=== PATIENT | female | born 1965 | race African-American/Black ===

== ENCOUNTER 2018-04-02 12:56 | Inpatient (IN) | payer OTHER ==
[2018-04-02 17:02] VITALS: BMI 26.4
--- NOTE | 2018-04-02 19:59 | HP ---
[facility] Chief Complaint: crack/ cocaine rehab Allergies/Adverse Reactions: Allergies Allergy/AdvReac Type Severity Reaction Status Date / Time No Known Allergies Allergy Verified 04/02/18 18:06 History of Present Illness: 53 yo female with hx of nicotine and crack / cocaine dependence is here seeking detox. PMHX: asthma, Epilepsy, last seizure one moth ago, heart murmur, HTN, anxiety,depression, bipolar. Denies suicidal / homicidal ideation. Denies hx of suicide attempts. Longest period of sobriety 4 years. Last substance abuse treatment at [facility] in 2011. Exam Limitations: No Limitations - Ebola screening Have you traveled outside of the country in the last 21 days: No (N) Have you had contact with anyone from an Ebola affected area: No Have you been sick,other than usual withdrawal symptoms: No Do you have a fever: No - Review of Systems Constitutional: No Symptoms Reported EENT: reports: Other (decrease vision needs glasses) Respiratory: reports: No Symptoms reported Cardiac: reports: No Symptoms Reported GI: reports: No Symptoms Reported : reports: No Symptoms Reported Musculoskeletal: reports: Back Pain Integumentary: reports: Pruritus (chronic) Neuro: reports: See HPI Endocrine: reports: No Symptoms Reported Hematology: reports: No Symptoms Reported Psychiatric: reports: Orientated x3, Depressed Other Systems: Reviewed and Negative Patient History - Patient Medical History Hx Anemia: No Hx Asthma: Yes Hx Chronic Obstructive Pulmonary Disease (COPD): No Hx Cancer: No Hx Cardiac Disorders: No Hx Congestive Heart Failure: No Hx Hypertension: Yes (no meds ) Hx Hypercholesterolemia: No Hx Pacemaker: No HX Cerebrovascular Accident: No Hx Seizures: Yes (last seizure 1 month ago, hx epilepsy) Hx Dementia: No Hx Diabetes: No Hx Gastrointestinal Disorders: No Hx Liver Disease: No Hx Genitourinary Disorders: No Hx Sexually Transmitted Disorders: No Hx Renal Disease (ESRD): No Hx Thyroid Disease: No Hx Human Immunodeficiency Virus (HIV): No (last tested three months ago with negative results ) Hx Hepatitis C: No Hx Depression: Yes Hx Suicide Attempt: No Hx Bipolar Disorder: Yes Hx Schizophrenia: No - Patient Surgical History Past Surgical History: No - PPD History Previous Implant?: No Documented Results: Negative w/o proof PPD to be Administered?: Yes - Reproductive History Patient is a Female of Child Bearing Age (11 -55 yrs old): Yes Last Menstrual Period: 03/28/18 Patient : No - Smoking Cessation Smoking history: Current every day smoker Have you smoked in the past 12 months: Yes Aproximately how many cigarettes per day: 20 Hx Chewing Tobacco Use: No Initiated information on smoking cessation: Yes 'Breaking Loose' booklet given: 04/02/18 - Substance & Tx. History Hx Alcohol Use: No Hx Substance Use: Yes Substance Use Type: Alcohol, Cocaine, Marijuana Hx Substance Use Treatment: Yes (Last substance abuse treatment at [facility] in 2011.) - Substances Abused Crack Route: Smoking Frequency: Daily Amount used: $100 Age of first use: 21 Date of Last Use: 04/01/18 Alcohol Route: Oral Frequency: 1-2 times per week Amount used: 1/2 pint Age of first use: 26 Date of Last Use: 04/01/18 Marijuana/Hashish Route: Smoking Frequency: 1-3 times last 30 days Amount used: 2 pulls of a joint Age of first use: 21 Date of Last Use: 04/01/18 Family Disease History - Family Disease History Family Disease History: Other: Father (alive and well ), Mother (alive and well ) Admission Physical Exam S - Vital Signs Vital Signs: Vital Signs - 24 hr 04/02/18 16:59 Temperature 98.3 F Pulse Rate 69 Respiratory 16 Rate Blood Pressure 154/106 - Physical General Appearance: Yes: Appropriately Dressed, Anxious HEENTM: Yes: EOMI, Hearing grossly Normal, Normal ENT Inspection, Normocephalic , Normal Voice, ILIANA, Pharynx Normal, Tm's normal Respiratory: Yes: Chest Non-Tender, Lungs Clear, Normal Breath Sounds, No Respiratory Distress, No Accessory Muscle Use Neck: Yes: No masses,lesions,Nodules, Trachea in good position Breast: Yes: Breast Exam Deferred Cardiology: Yes: Regular Rhythm, Regular Rate Abdominal: Yes: Normal Bowel Sounds, Non Tender, Soft, Protuberent Genitourinary: Yes: Within Normal Limits Back: Yes: Normal Inspection Musculoskeletal: Yes: Back pain Extremities: Yes: Normal Capillary Refill, Normal Inspection, Normal Range of Motion, Non-Tender Neurological: Yes: cap cutter II-XII NML intact, Fully Oriented, Alert, Motor Strength 5/5, Depressed Affect Integumentary: Yes: Normal Color, Dry, Warm, Other (multiple healed scars on both hands and feet, + pruritus) Lymphatic: Yes: Within Normal Limits - Diagnostic (1) Pruritus Current Visit: Yes Status: Acute (2) Alcohol dependence Current Visit: Yes Status: Acute (3) Cocaine dependence Current Visit: Yes Status: Acute (4) Depressed mood Current Visit: Yes Status: Acute (5) Hypertension Current Visit: Yes Status: Chronic Qualifiers: Hypertension type: essential hypertension Qualified Code(s): I10 - Essential (primary) hypertension [facility] Breath Alcohol Content Breath Alcohol Content: 0 Urine Pregancy Test - Result Urine Test Results: Negative- NO Line Present Urine Drug Screen - Results Drug Screen Negative: No Urine Drug Screen Results: BRADEN-Cocaine Inpatient Rehab Admission - Initial Determination Are CD services needed?: Yes Free of communicable disease: Yes Not in need of hospitalization: Yes - Rehab Admission Criteria Previous failed treatment: Yes Poor recovery environment: Yes Comorbidities: Yes Lacks judgement: Yes Patient is meeting Inpatient Rehab admission criteria:: Yes
[2018-04-02] MEDS ORDERED: ALBUTEROL SO4 18 GM HFA INHALER IH PRN (20:01)
[2018-04-02] MEDS ORDERED: MAG HYDROX/AL HYDROX/SIMETH 30 ML UNIT-DOSE CUP PO PRN (20:02)
[2018-04-02] MEDS ORDERED: guaiFENesin/D-METHORPHAN HB 10 ML UNIT-DOSE CUPS PO PRN (20:02)
[2018-04-02] MEDS ORDERED: MENTHOL/PHENOL 1 EACH UD MM PRN (20:02)
[2018-04-02] MEDS ORDERED: LOPERAMIDE HCL 2 MG CAPSULE PO PRN (20:02)
[2018-04-02] MEDS ORDERED: MAGNESIUM HYDROX 2400MG/30ML ORAL SUSPENSION 30 ML CUP PO PRN (20:02)
[2018-04-02] MEDS ORDERED: ACETAMINOPHEN 325 MG TABLET (FP) PO PRN (20:02)
[2018-04-02] MEDS ORDERED: IBUPROFEN 400 MG TABLET (FP) PO PRN (20:02)
[2018-04-02] MEDS ORDERED: hydrOXYzine PAMOATE 50 MG CAPSULE (FP) PO PRN (20:02)
[2018-04-02] MEDS ORDERED: MAGNESIUM CITRATE 300 ML BOTTLE PO PRN (20:02)
[2018-04-02] MEDS ORDERED: P-EPHED 60MG/TRIPROLIDI 2.5MG TABLET PO PRN (20:02)
[2018-04-02] MEDS ORDERED: COLLOIDAL OATMEAL 1 BAR EACH TP PRN (20:04)
[2018-04-02] MEDS ORDERED: ALBUTEROL SO4 0.083% IH SOL 2.5 MG/3 ML VIAL.NEB. NEB PRN (20:34)
[2018-04-02] MEDS ORDERED: MELATONIN 5 MG TABLETS PO PRN (22:00)
[2018-04-02] MEDS ORDERED: TUBERCULIN PPD 5 TU/0.1ML VIAL ID ONE (22:57)
[2018-04-02] MEDS: THIAMINE HCL 100 MG TABLET (FP) PO SCH (23:00)
[2018-04-02] MEDS: PHENYTOIN NA EXTENDED 100 MG CAPSULE (FP) PO SCH (23:00)
[2018-04-03] MEDS: PHENYTOIN NA EXTENDED 100 MG CAPSULE (FP) PO SCH ×3 (06:38→21:25)
[2018-04-03 07:54] LABS: URINE APPEARANCE SLCLOUDY; URINE BILIRUBIN NEGATIVE (<2.0 mg/dL); URINE BLOOD NEGATIVE (NEGATIVE); URINE COLOR YELLOW; URINE GLUCOSE (UA) NEGATIVE (NEGATIVE); URINE KETONE NEGATIVE (NEGATIVE); URINE NITRITE NEGATIVE (NEGATIVE); URINE PROTEIN NEGATIVE (NEGATIVE); URINE UROBILINOGEN NEGATIVE mg/dL (0.2-1.0)
[2018-04-03 07:55] LABS: URINE LEUK ESTERASE 1+ (NEGATIVE)
[2018-04-03 08:57] LABS: EPI CELLS FEW /HPF (FEW); URINE MUCUS RARE
[2018-04-03] MEDS: PRENATAL VITAMINS W/ FOLIC ACID TABLET (FP) PO SCH (09:40)
[2018-04-03] MEDS: ASPIRIN 81 MG CHEWABLE TABLETS PO SCH (09:40)
[2018-04-03] MEDS: NICOTINE 21 MG/24 HOURS TOPICAL PATCH TD SCH (09:40)
[2018-04-03] MEDS: NICOTINE POLACRILEX 2 MG GUM BC PRN (09:42)
[2018-04-03 10:39] LABS: CHLORIDE 108 mmol/L (98-107); HEMATOCRIT 43.4 % (32.4-45.2); HEMOGLOBIN 14.7 GM/dL (10.7-15.3); MCH 28.2 pg (25.7-33.7); MCHC 33.9 g/dl (32.0-36.0); MEAN CELL VOLUME 83.2 fl (80-96); MEAN PLT VOLUME 10.2 fl (7.5-11.1); PLATELET COUNT 248 K/MM3 (134-434); POTASSIUM 4.1 mmol/L (3.5-5.1); RBC 5.21 M/mm3 (3.60-5.2); RDW 14.3 % (11.6-15.6); SODIUM 142 mmol/L (136-145); WHITE BLOOD COUNT 8.7 K/mm3 (4.0-10.0)
[2018-04-03 11:04] LABS: ALBUMIN 3.2 g/dl (3.4-5.0); ALK PHOS 80 U/L (45-117); ANION GAP 10 (8-16); BILIRUBIN,TOTAL 0.2 mg/dL (0.2-1.0); BLOOD UREA NITROGEN 12 mg/dL (7-18); CALCIUM 9.1 mg/dL (8.5-10.1); CO2 24 mmol/L (21-32); GLUCOSE,RANDOM 119 mg/dL (74-106); SGOT/AST 19 U/L (15-37); SGPT/ALT 24 U/L (12-78); TOT PROT 6.3 g/dl (6.4-8.2)
--- NOTE | 2018-04-03 11:43 | EKG ---
Test Reason : Blood Pressure : / mmHG Vent. Rate : 070 BPM Atrial Rate : 070 BPM P-R Int : 138 ms QRS Dur : 090 ms QT Int : 440 ms P-R-T Axes : 000 056 073 degrees QTc Int : 475 ms NORMAL SINUS RHYTHM SEPTAL INFARCT , AGE UNDETERMINED ABNORMAL ECG NO PREVIOUS ECGS AVAILABLE Confirmed by ALISON PAYNE, DANIEL ([id number]) on 04/03/2018 11:42:52 AM Referred By: Confirmed By:DANIEL ROSAS MD
--- NOTE | 2018-04-03 13:40 | PN ---
[facility] Progress Note Note: Vital Signs Temperature 97.9 F 04/03/18 06:51 Pulse Rate 77 04/03/18 06:51 Respiratory Rate 18 04/03/18 06:51 Blood Pressure 116/77 04/03/18 06:51 O2 Sat by Pulse Oximetry (%) Laboratory Last Values WBC 8.7 K/mm3 (4.0-10.0) 04/03/18 08:30 RBC 5.21 M/mm3 (3.60-5.2) H 04/03/18 08:30 Hgb 14.7 GM/dL (10.7-15.3) 04/03/18 08:30 Hct 43.4 % (32.4-45.2) 04/03/18 08:30 MCV 83.2 fl (80-96) 04/03/18 08:30 MCH 28.2 pg (25.7-33.7) 04/03/18 08:30 MCHC 33.9 g/dl (32.0-36.0) 04/03/18 08:30 RDW 14.3 % (11.6-15.6) 04/03/18 08:30 Plt Count 248 K/MM3 (134-434) 04/03/18 08:30 MPV 10.2 fl (7.5-11.1) 04/03/18 08:30 Sodium 142 mmol/L (136-145) 04/03/18 08:30 Potassium 4.1 mmol/L (3.5-5.1) 04/03/18 08:30 Chloride 108 mmol/L (98-107) H 04/03/18 08:30 Carbon Dioxide 24 mmol/L (21-32) 04/03/18 08:30 Anion Gap 10 (8-16) 04/03/18 08:30 BUN 12 mg/dL (7-18) 04/03/18 08:30 Creatinine 1.0 mg/dL (0.55-1.02) 04/03/18 08:30 Creat Clearance w eGFR 58.22 (>60) 04/03/18 08:30 Random Glucose 119 mg/dL (74-106) H 04/03/18 08:30 Calcium 9.1 mg/dL (8.5-10.1) 04/03/18 08:30 Total Bilirubin 0.2 mg/dL (0.2-1.0) 04/03/18 08:30 AST 19 U/L (15-37) 04/03/18 08:30 ALT 24 U/L (12-78) 04/03/18 08:30 Alkaline Phosphatase 80 U/L (45-117) 04/03/18 08:30 Total Protein 6.3 g/dl (6.4-8.2) L 04/03/18 08:30 Albumin 3.2 g/dl (3.4-5.0) L 04/03/18 08:30 Urine Color Yellow 04/02/18 22:00 Urine Appearance Slcloudy 04/02/18 22:00 Urine pH 5.0 (5.0-8.0) 04/02/18 22:00 Ur Specific [place] 1.020 (1.001-1.035) 04/02/18 22:00 Urine Protein Negative (NEGATIVE) 04/02/18 22:00 Urine Glucose (UA) Negative (NEGATIVE) 04/02/18 22:00 Urine Ketones Negative (NEGATIVE) 04/02/18 22:00 Urine Blood Negative (NEGATIVE) 04/02/18 22:00 Urine Nitrite Negative (NEGATIVE) 04/02/18 22:00 Urine Bilirubin Negative (<2.0 mg/dL) 04/02/18 22:00 Urine Urobilinogen Negative mg/dL (0.2-1.0) 04/02/18 22:00 Ur Leukocyte Esterase 1+ (NEGATIVE) H 04/02/18 22:00 Urine WBC (Auto) 13 /hpf (3-5) 04/02/18 22:00 Urine RBC (Auto) 2 /hpf (0-3) 04/02/18 22:00 Ur Epithelial Cells Few /HPF (FEW) 04/02/18 22:00 Urine Mucus Rare 04/02/18 22:00 Patient stable. Dilantin levels ordered U/A and urine culture ordered continue to monitor
[2018-04-03] MEDS: THIAMINE HCL 100 MG TABLET (FP) PO SCH (21:25)
[2018-04-03] MEDS: traZODone HCL 50 MG TABLET (FP) PO SCH (21:26)
[2018-04-03] MEDS ORDERED: QUEtiapine FUMARATE 200 MG TABLET PO SCH (22:00)
[2018-04-04] MEDS: PHENYTOIN NA EXTENDED 100 MG CAPSULE (FP) PO SCH ×3 (06:43→21:27)
[2018-04-04] MEDS: PRENATAL VITAMINS W/ FOLIC ACID TABLET (FP) PO SCH (10:03)
[2018-04-04] MEDS: NICOTINE 21 MG/24 HOURS TOPICAL PATCH TD SCH (10:03)
[2018-04-04] MEDS: ASPIRIN 81 MG CHEWABLE TABLETS PO SCH (10:03)
[2018-04-04] MEDS: NICOTINE POLACRILEX 2 MG GUM BC PRN (10:04)
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
--- NOTE | 2018-04-04 15:35 | PN ---
[facility] Progress Note Note: Dilantin level 2.4. Patient has hx of epilepsy. No seizure reported. Currently on Dilantin 100mg TID. Will repeat level in 72 hours.
[2018-04-04 17:48] LABS: URINE APPEARANCE SLCLOUDY; URINE BILIRUBIN NEGATIVE (<2.0 mg/dL); URINE BLOOD NEGATIVE (NEGATIVE); URINE COLOR LTYELLOW; URINE GLUCOSE (UA) NEGATIVE (NEGATIVE); URINE KETONE NEGATIVE (NEGATIVE); URINE NITRITE NEGATIVE (NEGATIVE); URINE PROTEIN NEGATIVE (NEGATIVE); URINE UROBILINOGEN NEGATIVE mg/dL (0.2-1.0)
[2018-04-04 17:53] LABS: URINE LEUK ESTERASE 2+ (NEGATIVE)
[2018-04-04 18:02] LABS: EPI CELLS MODERATE /HPF (FEW); URINE MUCUS RARE
[2018-04-04] MEDS: traZODone HCL 50 MG TABLET (FP) PO SCH (21:27)
[2018-04-04] MEDS: THIAMINE HCL 100 MG TABLET (FP) PO SCH (21:28)
[2018-04-04] MEDS: QUEtiapine FUMARATE 100 MG TABLET (FP) PO SCH (21:29)
[2018-04-05] MEDS: PHENYTOIN NA EXTENDED 100 MG CAPSULE (FP) PO SCH ×3 (06:48→21:21)
[2018-04-05] MEDS ORDERED: PHENYTOIN NA EXTENDED 100 MG CAPSULE (FP) PO ONE (08:49)
--- NOTE | 2018-04-05 08:54 | PN ---
[facility] Progress Note Note: Laboratory Last Values WBC 8.7 K/mm3 (4.0-10.0) 04/03/18 08:30 RBC 5.21 M/mm3 (3.60-5.2) H 04/03/18 08:30 Hgb 14.7 GM/dL (10.7-15.3) 04/03/18 08:30 Hct 43.4 % (32.4-45.2) 04/03/18 08:30 MCV 83.2 fl (80-96) 04/03/18 08:30 MCH 28.2 pg (25.7-33.7) 04/03/18 08:30 MCHC 33.9 g/dl (32.0-36.0) 04/03/18 08:30 RDW 14.3 % (11.6-15.6) 04/03/18 08:30 Plt Count 248 K/MM3 (134-434) 04/03/18 08:30 MPV 10.2 fl (7.5-11.1) 04/03/18 08:30 Sodium 142 mmol/L (136-145) 04/03/18 08:30 Potassium 4.1 mmol/L (3.5-5.1) 04/03/18 08:30 Chloride 108 mmol/L (98-107) H 04/03/18 08:30 Carbon Dioxide 24 mmol/L (21-32) 04/03/18 08:30 Anion Gap 10 (8-16) 04/03/18 08:30 BUN 12 mg/dL (7-18) 04/03/18 08:30 Creatinine 1.0 mg/dL (0.55-1.02) 04/03/18 08:30 Creat Clearance w eGFR 58.22 (>60) 04/03/18 08:30 Random Glucose 119 mg/dL (74-106) H 04/03/18 08:30 Calcium 9.1 mg/dL (8.5-10.1) 04/03/18 08:30 Total Bilirubin 0.2 mg/dL (0.2-1.0) 04/03/18 08:30 AST 19 U/L (15-37) 04/03/18 08:30 ALT 24 U/L (12-78) 04/03/18 08:30 Alkaline Phosphatase 80 U/L (45-117) 04/03/18 08:30 Total Protein 6.3 g/dl (6.4-8.2) L 04/03/18 08:30 Albumin 3.2 g/dl (3.4-5.0) L 04/03/18 08:30 Urine Color Ltyellow 04/04/18 15:00 Urine Appearance Slcloudy 04/04/18 15:00 Urine pH 7.0 (5.0-8.0) D 04/04/18 15:00 Ur Specific [place] 1.008 (1.001-1.035) 04/04/18 15:00 Urine Protein Negative (NEGATIVE) 04/04/18 15:00 Urine Glucose (UA) Negative (NEGATIVE) 04/04/18 15:00 Urine Ketones Negative (NEGATIVE) 04/04/18 15:00 Urine Blood Negative (NEGATIVE) 04/04/18 15:00 Urine Nitrite Negative (NEGATIVE) 04/04/18 15:00 Urine Bilirubin Negative (<2.0 mg/dL) 04/04/18 15:00 Urine Urobilinogen Negative mg/dL (0.2-1.0) 04/04/18 15:00 Ur Leukocyte Esterase 2+ (NEGATIVE) H 04/04/18 15:00 Urine WBC (Auto) 6 /hpf (3-5) 04/04/18 15:00 Urine RBC (Auto) 1 /hpf (0-3) 04/04/18 15:00 Ur Epithelial Cells Moderate /HPF (FEW) 04/04/18 15:00 Urine Mucus Rare 04/04/18 15:00 Phenytoin 2.5 ug/ml (10.0-20.0) L 04/04/18 08:30 RPR Titer Nonreactive (NONREACTIVE) 04/03/18 08:30 HIV 1&2 Antibody Screen Negative 04/03/18 08:30 HIV P24 Antigen Negative 04/03/18 08:30 dilantin level 2.5 dilantin 300 mgs po now dilantin 100 mgs po tid seizure precaution continue rehab
[2018-04-05] MEDS: NICOTINE 21 MG/24 HOURS TOPICAL PATCH TD SCH (09:08)
[2018-04-05] MEDS: ASPIRIN 81 MG CHEWABLE TABLETS PO SCH (09:08)
[2018-04-05] MEDS: PRENATAL VITAMINS W/ FOLIC ACID TABLET (FP) PO SCH (09:08)
[2018-04-05] MEDS: NICOTINE POLACRILEX 2 MG GUM BC PRN (09:09)
[2018-04-05] MEDS: QUEtiapine FUMARATE 100 MG TABLET (FP) PO SCH (21:21)
[2018-04-05] MEDS: THIAMINE HCL 100 MG TABLET (FP) PO SCH (21:21)
[2018-04-05] MEDS: traZODone HCL 50 MG TABLET (FP) PO SCH (21:21)
[2018-04-06] MEDS: PHENYTOIN NA EXTENDED 100 MG CAPSULE (FP) PO SCH ×3 (06:41→21:26)
[2018-04-06] MEDS: PRENATAL VITAMINS W/ FOLIC ACID TABLET (FP) PO SCH (09:36)
[2018-04-06] MEDS: ASPIRIN 81 MG CHEWABLE TABLETS PO SCH (09:36)
[2018-04-06] MEDS: NICOTINE 21 MG/24 HOURS TOPICAL PATCH TD SCH (09:37)
[2018-04-06] MEDS: THIAMINE HCL 100 MG TABLET (FP) PO SCH (21:26)
[2018-04-06] MEDS: QUEtiapine FUMARATE 100 MG TABLET (FP) PO SCH (21:26)
[2018-04-06] MEDS: diphenhydrAMINE HCL 50 MG CAPSULE PO PRN (21:27)
[2018-04-06] MEDS: traZODone HCL 50 MG TABLET (FP) PO SCH (21:28)
[2018-04-07] MEDS: PHENYTOIN NA EXTENDED 100 MG CAPSULE (FP) PO SCH ×3 (06:15→21:33)
[2018-04-07] MEDS: NICOTINE 21 MG/24 HOURS TOPICAL PATCH TD SCH (10:13)
[2018-04-07] MEDS: PRENATAL VITAMINS W/ FOLIC ACID TABLET (FP) PO SCH (10:13)
[2018-04-07] MEDS: ASPIRIN 81 MG CHEWABLE TABLETS PO SCH (10:13)
[2018-04-07] MEDS ORDERED: PT OWN MED DRAWER 7, Y5N ONE (10:14)
[2018-04-07] MEDS: HYDROCORTISONE 1% TOPICAL OINT 30 GM TUBE TP PRN (10:15)
--- NOTE | 2018-04-07 12:26 | PN ---
[facility] Progress Note Note: DILANTIN LEVEL NORMAL AT 10.1. CONTINUE SAME DOSE AND REPEAT LEVEL IN 1 WEEK. CONTINUE TO MONITOR CLINICALLY.
[2018-04-07] MEDS: traZODone HCL 50 MG TABLET (FP) PO SCH (21:33)
[2018-04-07] MEDS: QUEtiapine FUMARATE 50 MG TABLET PO SCH (21:35)
[2018-04-07] MEDS: diphenhydrAMINE HCL 50 MG CAPSULE PO PRN (21:35)
[2018-04-07] MEDS: THIAMINE HCL 100 MG TABLET (FP) PO SCH (22:58)
[2018-04-08] MEDS: PHENYTOIN NA EXTENDED 100 MG CAPSULE (FP) PO SCH ×3 (06:19→21:36)
[2018-04-08] MEDS: ASPIRIN 81 MG CHEWABLE TABLETS PO SCH (10:10)
[2018-04-08] MEDS: NICOTINE 21 MG/24 HOURS TOPICAL PATCH TD SCH (10:10)
[2018-04-08] MEDS: PRENATAL VITAMINS W/ FOLIC ACID TABLET (FP) PO SCH (10:10)
[2018-04-08] MEDS: HYDROCORTISONE 1% TOPICAL OINT 30 GM TUBE TP PRN (10:11)
[2018-04-08] MEDS: QUEtiapine FUMARATE 50 MG TABLET PO SCH (21:36)
[2018-04-08] MEDS: traZODone HCL 50 MG TABLET (FP) PO SCH (21:36)
[2018-04-08] MEDS: THIAMINE HCL 100 MG TABLET (FP) PO SCH (21:37)
[2018-04-08] MEDS: diphenhydrAMINE HCL 50 MG CAPSULE PO PRN (21:37)
[2018-04-09] MEDS: PHENYTOIN NA EXTENDED 100 MG CAPSULE (FP) PO SCH ×3 (06:43→21:26)
[2018-04-09] MEDS: NICOTINE 21 MG/24 HOURS TOPICAL PATCH TD SCH (10:01)
[2018-04-09] MEDS: ASPIRIN 81 MG CHEWABLE TABLETS PO SCH (10:01)
[2018-04-09] MEDS: PRENATAL VITAMINS W/ FOLIC ACID TABLET (FP) PO SCH (10:01)
[2018-04-09] MEDS: NICOTINE POLACRILEX 2 MG GUM BC PRN (10:02)
[2018-04-09] MEDS: THIAMINE HCL 100 MG TABLET (FP) PO SCH (21:26)
[2018-04-09] MEDS: QUEtiapine FUMARATE 50 MG TABLET PO SCH (21:26)
[2018-04-09] MEDS: traZODone HCL 50 MG TABLET (FP) PO SCH (21:26)
[2018-04-09] MEDS: diphenhydrAMINE HCL 50 MG CAPSULE PO PRN (21:27)
[2018-04-10] MEDS: PHENYTOIN NA EXTENDED 100 MG CAPSULE (FP) PO SCH ×3 (09:32→21:22)
[2018-04-10] MEDS: ASPIRIN 81 MG CHEWABLE TABLETS PO SCH (09:40)
[2018-04-10] MEDS: PRENATAL VITAMINS W/ FOLIC ACID TABLET (FP) PO SCH (09:41)
[2018-04-10] MEDS: NICOTINE 21 MG/24 HOURS TOPICAL PATCH TD SCH (09:41)
[2018-04-10] MEDS ORDERED: PT OWN MED DRAWER 7, Y5N ONE (09:43)
[2018-04-10] MEDS: HYDROCORTISONE 1% TOPICAL OINT 30 GM TUBE TP PRN ×2 (09:43→21:25)
--- NOTE | 2018-04-10 14:15 | PN ---
[facility] Progress Note Note: Patient schedule for d/c tomorrow. Patient to follow up with PMD 1-2 weeks upon discharge.
[2018-04-10] MEDS: THIAMINE HCL 100 MG TABLET (FP) PO SCH (21:22)
[2018-04-10] MEDS: diphenhydrAMINE HCL 50 MG CAPSULE PO PRN (21:22)
[2018-04-10] MEDS: traZODone HCL 50 MG TABLET (FP) PO SCH (21:22)
[2018-04-10] MEDS: QUEtiapine FUMARATE 50 MG TABLET PO SCH (21:22)
[2018-04-11] MEDS: PHENYTOIN NA EXTENDED 100 MG CAPSULE (FP) PO SCH (06:09)
[2018-04-11 06:52] VITALS: BP 106/74; PULSE 80; TEMP 97.9
--- NOTE | 2018-04-11 09:28 | PN ---
Psychiatric Progress Note Vital Signs: Vital Signs Period Temp Pulse Resp BP Sys/Martinez Pulse Ox Last 24 Hr 97.9 F 80 18-18 106/74 Date of Session: 04/11/18 Chief Complaint:: Discharge visit HPI: Patient addressed Alcohol and Opioid dependence comorbid with Substance induced mood disorder. ROS: HTN. Current Medications: Active Medications Generic Name Dose Route Start Last Admin Trade Name Freq PRN Reason Stop Dose Admin Acetaminophen 650 mg 04/02/18 20:02 Tylenol - PO Q4H PRN FEVER Al Hydroxide/Mg Hydroxide 30 ml 04/02/18 20:02 Mylanta Oral Suspension - PO Q6H PRN DYSPEPSIA Albuterol Sulfate 2 puff 04/02/18 20:01 Ventolin Hfa Inhaler - IH Q4H PRN ASTHMA Albuterol Sulfate 1 amp 04/02/18 20:34 Ventolin 0.083% Nebulizer Soln - NEB Q4H PRN SHORT OF BREATH/WHEEZING Aspirin 81 mg 04/03/18 10:00 04/10/18 09:40 Asa - PO 81 mg DAILY SARI Administration Colloidal Oatmeal 1 applic 04/02/18 20:04 Aveeno Soap - TP DAILY PRN HYGEINE Diphenhydramine HCl 50 mg 04/04/18 11:30 04/10/18 21:22 Benadryl - PO 50 mg HS PRN Administration INSOMNIA Eucalyptus/Menthol/Phenol/Sorbitol 1 each 04/02/18 20:02 Cepastat Lozenge - MM Q4H PRN SORE THROAT Guaifenesin 10 ml 04/02/18 20:02 Robitussin Dm - PO Q6H PRN COUGH Hydrocortisone 1 applic 04/02/18 20:04 04/10/18 21:25 Hytone 1% Ointment - TP 1 applic BID PRN Administration itch Hydroxyzine Pamoate 50 mg 04/02/18 20:02 04/03/18 18:41 Vistaril - PO 50 mg Q4H PRN Administration AGITATION Ibuprofen 400 mg 04/02/18 20:02 Motrin - PO Q6H PRN Pain level 4-6 Loperamide HCl 4 mg 04/02/18 20:02 Imodium - PO Q6H PRN DIARRHEA Magnesium Citrate 300 ml 04/02/18 20:02 Citroma - PO Q48H PRN CONSTIPATION Magnesium Hydroxide 30 ml 04/02/18 20:02 Milk Of Magnesia - PO DAILY PRN CONSTIPATION Melatonin 5 mg 04/02/18 22:00 04/07/18 21:36 Melatonin PO 5 mg HS PRN Administration INSOMNIA Nicotine 21 mg 04/03/18 10:00 04/10/18 09:41 Nicoderm Patch - TD Not Given DAILY SARI Nicotine Polacrilex 2 mg 04/02/18 20:02 04/09/18 10:02 Nicorette Gum - BC 2 mg Q2H PRN Administration NICOTINE REPLACEMENT RX Phenytoin Sodium 100 mg 04/02/18 22:00 04/11/18 06:09 Dilantin - PO 100 mg TID SARI Administration Multivit/Folic Acid/Iron 1 tab 04/03/18 10:00 04/10/18 09:41 Vitamins (Sjr) - PO 1 tab DAILY SARI Administration Pseudoephedrine/Triprolidine 1 combo 04/02/18 20:02 Actifed - PO TID PRN NASAL CONGESTION Quetiapine Fumarate 150 mg 04/07/18 22:00 04/10/18 21:22 Seroquel - PO 150 mg HS SARI Administration Thiamine HCl 100 mg 04/02/18 22:00 04/10/18 21:22 Vitamin B1 - PO 100 mg HS SARI Administration Trazodone HCl 150 mg 04/03/18 22:00 04/10/18 21:22 Desyrel - PO 150 mg HS SARI Administration Current Side Effect: No Lab tests ordered: No Lab tests reviewed: Yes Provider note:: PATIENT COMPLETED THIS PROGRAM TODAY .SHE HAS MET HER TREATMENT GOALS AND WILL CONTINUE TO ADDRESS HER ISSUES ON OUTPATIENT BASIS AT [facility].PATIENT REPORTS FINDING THAT CURRENT MEDICATIONS: SEROQUEL 150 MG PO HS AND TRAZODONE 150 MG PO HS HELP TO COPE WITH MOOD INSTABILITY,ANXIETY,INSOMNIA.SCRIPTS PROVIDED. SUPPORTIVE THERAPY PROVIDED FOCUSING ON RELAPSE PREVENTION. PATIENT IS STABLE FOR DISCHARGE TODAY. Total face to face time:: 30 Mental Status Exam - Mental Status Exam Alert and Oriented to: Time, Place, Person Cognitive Function: Grossly Intact Patient Appearance: Well Groomed Mood: Anxious Affect: Mood Congruent Patient Behavior: Cooperative Speech Pattern: Clear Voice Loudness: Normal Thought Process: Goal Oriented Thought Disorder: Not Present Hallucinations: Denies Suicidal Ideation: Denies Homicidal Ideation: Denies Insight/Judgement: Fair Sleep: Fair Appetite: Fair Muscle strength/Tone: Normal Gait/Station: Normal Psychiatric Treatment Plan - Problem List (5) Hypertension Qualifiers: Hypertension type: essential hypertension Qualified Code(s): I10 - Essential (primary) hypertension
[2018-04-11] MEDS: ASPIRIN 81 MG CHEWABLE TABLETS PO SCH (09:35)
[2018-04-11] MEDS: NICOTINE 21 MG/24 HOURS TOPICAL PATCH TD SCH (09:36)
[2018-04-11] MEDS: PRENATAL VITAMINS W/ FOLIC ACID TABLET (FP) PO SCH (09:36)
== END 2018-04-11 09:52 | disposition home or self-care (01) | DRG 772 ==
LOC: YASAS 12:56 → Y3E 18:32
PROVIDERS: ADMIT Psychiatry & Neurology Psychiatry; ATTEND Psychiatry & Neurology Psychiatry
PROC: HZ42ZZZ Group Counseling for Substance Abuse Treatment, Cognitive-Behavioral (ICD-10-PCS; principal; 2018-04-02)
DX: F10.20 Alcohol dependence, uncomplicated (principal); F14.20 Cocaine dependence, uncomplicated; F17.210 Nicotine dependence, cigarettes, uncomplicated; F43.10 Post-traumatic stress disorder, unspecified; F19.24 Other psychoactive substance dependence with psychoactive substance-induced mood disorder; F32.9 Major depressive disorder, single episode, unspecified; I10 Essential (primary) hypertension; J45.909 Unspecified asthma, uncomplicated; L29.9 Pruritus, unspecified; G40.909 Epilepsy, unspecified, not intractable, without status epilepticus
CPT/HCPCS: 36415; 80053; 80185; 81003; 81015; 85027; 86593; 87086; 87389; 93005; 93010

== ENCOUNTER 2019-11-20 12:35 | Inpatient (IN) | payer OTHER ==
[2019-11-20 13:12] VITALS: BMI 24.0
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
[2019-11-20] MEDS ORDERED: guaiFENesin 200 MG/10 ML 10 ML UNIT-DOSE CUPS PO PRN (22:48)
[2019-11-20] MEDS ORDERED: MAGNESIUM CITRATE 300 ML BOTTLE PO PRN (22:48)
[2019-11-20] MEDS ORDERED: P-EPHED 60MG/TRIPROLIDI 2.5MG TABLET PO PRN (22:48)
[2019-11-20] MEDS ORDERED: ACETAMINOPHEN 325 MG TABLET (FP) PO PRN ×2 (22:48)
[2019-11-20] MEDS ORDERED: MENTHOL/PHENOL 1 EACH UD MM PRN (22:48)
[2019-11-20] MEDS ORDERED: DICYCLOMINE HCL 10 MG CAPSULE PO PRN (22:48)
[2019-11-20] MEDS ORDERED: chlordiazePOXIDE HCL 25 MG CAPSULE PO PRN (22:48)
[2019-11-20] MEDS ORDERED: MAG HYDROX/AL HYDROX/SIMETH 30 ML UNIT-DOSE CUP PO PRN (22:48)
[2019-11-20] MEDS ORDERED: METHOCARBAMOL 500 MG TABLET PO PRN (22:48)
[2019-11-20] MEDS ORDERED: MELATONIN 5 MG TABLETS PO PRN (22:48)
[2019-11-20] MEDS ORDERED: MAGNESIUM HYDROX 2400MG/30ML ORAL SUSPENSION 30 ML CUP PO PRN (22:48)
[2019-11-20] MEDS ORDERED: ONDANSETRON *ODT* 4 MG TABLET SL PRN (22:48)
[2019-11-20] MEDS ORDERED: BISMUTH SUBSALICYLATE 524 MG/30 ML UD PO PRN (22:48)
[2019-11-20] MEDS ORDERED: IBUPROFEN 400 MG TABLET (FP) PO PRN (22:48)
[2019-11-20] MEDS ORDERED: hydrOXYzine PAMOATE 25 MG CAPSULE (FP) PO PRN (22:48)
[2019-11-20] MEDS ORDERED: ALBUTEROL SO4 HFA INHALER IH PRN (22:52)
--- NOTE | 2019-11-20 23:23 | PN ---
S Progress Note Note: RETURNS FROM [facility] ER AFTER BEING SENT THERE FOR CLEARANCE DC ACUTE BRONCHITIS STARTED ON ZITHROMAX FIRST DOSE GIVEN P- ADMIT TO DETOX LIBRIUM TAPER ZITHROMAX 250 MG PO DAILY X 4 DAYS
[2019-11-20] MEDS: chlordiazePOXIDE HCL 25 MG CAPSULE PO SCH (23:37)
[2019-11-21] MEDS: chlordiazePOXIDE HCL 25 MG CAPSULE PO SCH ×4 (05:57→22:01)
[2019-11-21] MEDS: PHENYTOIN NA EXTENDED 100 MG CAPSULE (FP) PO SCH ×3 (05:58→22:01)
[2019-11-21] MEDS: ASPIRIN 81 MG CHEWABLE TABLETS PO SCH (10:50)
[2019-11-21] MEDS: AZITHROMYCIN 250 MG TABLET PO SCH (10:50)
[2019-11-21] MEDS: PRENATAL VITAMINS W/ FOLIC ACID TABLET (FP) PO SCH (10:50)
[2019-11-21] MEDS: NICOTINE 21 MG/24 HOURS TOPICAL PATCH TD SCH (10:50)
[2019-11-21 11:18] LABS: HEMOGLOBIN 13.7 GM/dL (10.7-15.3); MCH 27.9 pg (25.7-33.7); MCHC 33.5 g/dl (32.0-36.0); MEAN CELL VOLUME 83.2 fl (80-96); MEAN PLT VOLUME 9.3 fl (7.5-11.1); PLATELET COUNT 278 K/MM3 (134-434); RBC 4.92 M/mm3 (3.60-5.2); RDW 14.3 % (11.6-15.6); WHITE BLOOD COUNT 9.1 K/mm3 (4.0-10.0)
[2019-11-21 11:28] LABS: ALBUMIN 2.9 g/dl (3.4-5.0); BILIRUBIN,TOTAL 0.2 mg/dL (0.2-1); BLOOD UREA NITROGEN 10.7 mg/dL (7-18); CALCIUM 8.7 mg/dL (8.5-10.1); POTASSIUM 4.2 mmol/L (3.5-5.1); TOT PROT 5.8 g/dl (6.4-8.2)
--- NOTE | 2019-11-21 13:10 | PN ---
[facility] CIWA - CIWA Score Nausea/Vomitin-No Nausea/No Vomiting Muscle Tremors: 2 Anxiety: 3 Agitation: 1-Slight > Activity Paroxysmal Sweats: 3 Orientation: 0-Oriented Tacttile Disturbances: 0-None Auditory Disturbances: 0-None Visual Disturbances: 0-None Headache: 2-Mild CIWA-Ar Total Score: 11 S Progress Note (SOAP) Subjective: c/o headache, anxiety, sweats, and shakes. Objective: 11/21/19 13:11 Vital Signs 11/21/19 11/21/19 06:31 09:11 Temperature 97.1 F L 97.3 F L Pulse Rate 65 66 Respiratory 18 18 Rate Blood Pressure 106/64 146/91 Laboratory Last Values WBC 9.1 K/mm3 (4.0-10.0) 11/21/19 08:00 RBC 4.92 M/mm3 (3.60-5.2) 11/21/19 08:00 Hgb 13.7 GM/dL (10.7-15.3) 11/21/19 08:00 Hct 41.0 % (32.4-45.2) 11/21/19 08:00 MCV 83.2 fl (80-96) 11/21/19 08:00 MCH 27.9 pg (25.7-33.7) 11/21/19 08:00 MCHC 33.5 g/dl (32.0-36.0) 11/21/19 08:00 RDW 14.3 % (11.6-15.6) 11/21/19 08:00 Plt Count 278 K/MM3 (134-434) 11/21/19 08:00 MPV 9.3 fl (7.5-11.1) 11/21/19 08:00 Sodium 142 mmol/L (136-145) 11/21/19 08:00 Potassium 4.2 mmol/L (3.5-5.1) 11/21/19 08:00 Chloride 109 mmol/L (98-107) H 11/21/19 08:00 Carbon Dioxide 26 mmol/L (21-32) 11/21/19 08:00 Anion Gap 7 MMOL/L (8-16) L 11/21/19 08:00 BUN 10.7 mg/dL (7-18) 11/21/19 08:00 Creatinine 1.0 mg/dL (0.55-1.3) 11/21/19 08:00 Est GFR (CKD-EPI)AfAm 74.49 11/21/19 08:00 Est GFR (CKD-EPI)NonAf 64.27 11/21/19 08:00 Random Glucose 133 mg/dL (74-106) H 11/21/19 08:00 Calcium 8.7 mg/dL (8.5-10.1) 11/21/19 08:00 Total Bilirubin 0.2 mg/dL (0.2-1) 11/21/19 08:00 AST 34 U/L (15-37) 11/21/19 08:00 ALT 37 U/L (13-61) 11/21/19 08:00 Alkaline Phosphatase 122 U/L (45-117) H 11/21/19 08:00 Total Protein 5.8 g/dl (6.4-8.2) L 11/21/19 08:00 Albumin 2.9 g/dl (3.4-5.0) L 11/21/19 08:00 Labs noted. Assessment: 11/21/19 13:11 AOX3, in no acute respiratory distress. Full ROM, ambulating in the unit. Withdrawal symptoms. Plan: continue detox.
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
[2019-11-21 18:27] LABS: URINE APPEARANCE Clear; URINE BILIRUBIN Negative (NEGATIVE); URINE COLOR Yellow; URINE GLUCOSE (UA) Negative (NEGATIVE); URINE KETONE Negative (NEGATIVE); URINE LEUK ESTERASE Trace (NEGATIVE); URINE NITRITE Negative (NEGATIVE); URINE PROTEIN Negative (NEGATIVE); URINE UROBILINOGEN 0.2 mg/dL (0.2-1.0)
[2019-11-21 18:32] LABS: EPI CELLS 17.4 /HPF (0-5/HPF); HYALINE CASTS 4.09 /lpf (0-8); URINE BACTERIA 336.4 /hpf (NEGATIVE); URINE RBC 0.9 /hpf (0-4); URINE WBC 4.4 /hpf (0-5)
[2019-11-21] MEDS: NICOTINE POLACRILEX 2 MG GUM BUC PRN (20:41)
[2019-11-21] MEDS: THIAMINE HCL 100 MG TABLET (FP) PO SCH (22:01)
[2019-11-21] MEDS: traZODone HCL 50 MG TABLET (FP) PO SCH (22:01)
[2019-11-21] MEDS: QUEtiapine FUMARATE 100 MG TABLET (FP) PO SCH (22:01)
[2019-11-22] MEDS: PHENYTOIN NA EXTENDED 100 MG CAPSULE (FP) PO SCH ×3 (05:58→22:05)
[2019-11-22] MEDS: chlordiazePOXIDE HCL 25 MG CAPSULE PO SCH ×4 (05:58→22:05)
[2019-11-22] MEDS: AZITHROMYCIN 250 MG TABLET PO SCH (10:40)
[2019-11-22] MEDS: ASPIRIN 81 MG CHEWABLE TABLETS PO SCH (10:40)
[2019-11-22] MEDS: PRENATAL VITAMINS W/ FOLIC ACID TABLET (FP) PO SCH (10:40)
[2019-11-22] MEDS: NICOTINE 21 MG/24 HOURS TOPICAL PATCH TD SCH (10:41)
[2019-11-22] MEDS: NICOTINE POLACRILEX 2 MG GUM BUC PRN (10:43)
--- NOTE | 2019-11-22 13:10 | PN ---
S CIWA - CIWA Score Nausea/Vomitin-Mild Nausea/No Vomiting Muscle Tremors: 3 Anxiety: 2 Agitation: 1-Slight > Activity Paroxysmal Sweats: 1-Minimal Palms Moist Orientation: 0-Oriented Tacttile Disturbances: 0-None Auditory Disturbances: 0-None Visual Disturbances: 0-None Headache: 1-Very Mild CIWA-Ar Total Score: 9 [facility] Progress Note (SOAP) Subjective: 54 years old female admitted on 11/20/19 for alcohol withdrawal sx management treating with librium detox regimen c/o gassy gingle daniel with gas x ordered patient is taking dilantin 100 mg po tid order dilantin serum level will adjust dilantin dosage long history of seizure adds seizure to problem list Objective: 11/22/19 13:14 Vital Signs Temperature 97.5 F L 11/22/19 13:12 Pulse Rate 84 11/22/19 13:12 Respiratory Rate 18 11/22/19 13:12 Blood Pressure 133/87 11/22/19 13:12 O2 Sat by Pulse Oximetry (%) Laboratory Last Values WBC 9.1 K/mm3 (4.0-10.0) 11/21/19 08:00 RBC 4.92 M/mm3 (3.60-5.2) 11/21/19 08:00 Hgb 13.7 GM/dL (10.7-15.3) 11/21/19 08:00 Hct 41.0 % (32.4-45.2) 11/21/19 08:00 MCV 83.2 fl (80-96) 11/21/19 08:00 MCH 27.9 pg (25.7-33.7) 11/21/19 08:00 MCHC 33.5 g/dl (32.0-36.0) 11/21/19 08:00 RDW 14.3 % (11.6-15.6) 11/21/19 08:00 Plt Count 278 K/MM3 (134-434) 11/21/19 08:00 MPV 9.3 fl (7.5-11.1) 11/21/19 08:00 Sodium 142 mmol/L (136-145) 11/21/19 08:00 Potassium 4.2 mmol/L (3.5-5.1) 11/21/19 08:00 Chloride 109 mmol/L (98-107) H 11/21/19 08:00 Carbon Dioxide 26 mmol/L (21-32) 11/21/19 08:00 Anion Gap 7 MMOL/L (8-16) L 11/21/19 08:00 BUN 10.7 mg/dL (7-18) 11/21/19 08:00 Creatinine 1.0 mg/dL (0.55-1.3) 11/21/19 08:00 Est GFR (CKD-EPI)AfAm 74.49 11/21/19 08:00 Est GFR (CKD-EPI)NonAf 64.27 11/21/19 08:00 Random Glucose 133 mg/dL (74-106) H 11/21/19 08:00 Calcium 8.7 mg/dL (8.5-10.1) 11/21/19 08:00 Total Bilirubin 0.2 mg/dL (0.2-1) 11/21/19 08:00 AST 34 U/L (15-37) 11/21/19 08:00 ALT 37 U/L (13-61) 11/21/19 08:00 Alkaline Phosphatase 122 U/L (45-117) H 11/21/19 08:00 Total Protein 5.8 g/dl (6.4-8.2) L 11/21/19 08:00 Albumin 2.9 g/dl (3.4-5.0) L 11/21/19 08:00 Urine Color Yellow 11/21/19 10:05 Urine Appearance Clear 11/21/19 10:05 Urine pH 6.0 (5.0-8.0) 11/21/19 10:05 Ur Specific [place] 1.010 (1.010-1.035) 11/21/19 10:05 Urine Protein Negative (NEGATIVE) 11/21/19 10:05 Urine Glucose (UA) Negative (NEGATIVE) 11/21/19 10:05 Urine Ketones Negative (NEGATIVE) 11/21/19 10:05 Urine Blood Negative (NEGATIVE) 11/21/19 10:05 Urine Nitrite Negative (NEGATIVE) 11/21/19 10:05 Urine Bilirubin Negative (NEGATIVE) 11/21/19 10:05 Urine Urobilinogen 0.2 mg/dL (0.2-1.0) 11/21/19 10:05 Ur Leukocyte Esterase Trace (NEGATIVE) 11/21/19 10:05 Urine WBC (Auto) 4.4 /hpf (0-5) 11/21/19 10:05 Urine RBC (Auto) 0.9 /hpf (0-4) 11/21/19 10:05 Urine Casts (Auto) 4.09 /lpf (0-8) 11/21/19 10:05 U Epithel Cells (Auto) 17.4 /HPF (0-5/HPF) 11/21/19 10:05 Urine Bacteria (Auto) 336.4 /hpf (NEGATIVE) 11/21/19 10:05 lab noted Assessment: 11/22/19 13:14 alcohol withdrawal 11/22/19 13:15 seizure Plan: libriunm regimen waiting for dilantin level
[2019-11-22] MEDS: SIMETHICONE 80 MG TAB.CHEW (FP) PO SCH ×3 (14:28→22:05)
[2019-11-22] MEDS: THIAMINE HCL 100 MG TABLET (FP) PO SCH (22:05)
[2019-11-22] MEDS: QUEtiapine FUMARATE 100 MG TABLET (FP) PO SCH (22:05)
[2019-11-22] MEDS: traZODone HCL 50 MG TABLET (FP) PO SCH (22:05)
[2019-11-23] MEDS ORDERED: chlordiazePOXIDE HCL 10 MG CAPSULE PO PRN
[2019-11-23] MEDS ORDERED: chlordiazePOXIDE HCL 10 MG CAPSULE PO SCH (05:00)
[2019-11-23] MEDS: PHENYTOIN NA EXTENDED 100 MG CAPSULE (FP) PO SCH (05:44)
[2019-11-23] MEDS: ASPIRIN 81 MG CHEWABLE TABLETS PO SCH (09:27)
[2019-11-23] MEDS: PRENATAL VITAMINS W/ FOLIC ACID TABLET (FP) PO SCH (09:27)
[2019-11-23] MEDS: NICOTINE 21 MG/24 HOURS TOPICAL PATCH TD SCH (09:28)
[2019-11-23] MEDS: AZITHROMYCIN 250 MG TABLET PO SCH (09:28)
[2019-11-23] MEDS: SIMETHICONE 80 MG TAB.CHEW (FP) PO SCH (09:28)
[2019-11-23 09:31] VITALS: BP 134/93; PULSE 84; TEMP 97.5
--- NOTE | 2019-11-23 10:20 | DS ---
[facility] Detox Discharge Summary Admission Date: 11/20/19 Discharge Date: 11/23/19 - History Present History: Alcohol Dependence Additional Comments: 54 years old female admitted on 11/20/19 for alcohol withdrawal sx management treated with librium detox regiment patient has completed librium regiment and tolerated well alert oriented x 3 patient prefers to leave the detox unit today earlier than estimated day of long history of seizure treated with dilantin serum level 5.8 reports has family issue needs to be resolved case discussed with the nurse routine discharge is appropriated patient prefers to go to her neurologist for dilantin dosage adjustment respiratory clear lungs bilaterally on auscultation extremities full range of motion skin warm and dry Laboratory Last Values WBC 9.1 K/mm3 (4.0-10.0) 11/21/19 08:00 RBC 4.92 M/mm3 (3.60-5.2) 11/21/19 08:00 Hgb 13.7 GM/dL (10.7-15.3) 11/21/19 08:00 Hct 41.0 % (32.4-45.2) 11/21/19 08:00 MCV 83.2 fl (80-96) 11/21/19 08:00 MCH 27.9 pg (25.7-33.7) 11/21/19 08:00 MCHC 33.5 g/dl (32.0-36.0) 11/21/19 08:00 RDW 14.3 % (11.6-15.6) 11/21/19 08:00 Plt Count 278 K/MM3 (134-434) 11/21/19 08:00 MPV 9.3 fl (7.5-11.1) 11/21/19 08:00 Sodium 142 mmol/L (136-145) 11/21/19 08:00 Potassium 4.2 mmol/L (3.5-5.1) 11/21/19 08:00 Chloride 109 mmol/L (98-107) H 11/21/19 08:00 Carbon Dioxide 26 mmol/L (21-32) 11/21/19 08:00 Anion Gap 7 MMOL/L (8-16) L 11/21/19 08:00 BUN 10.7 mg/dL (7-18) 11/21/19 08:00 Creatinine 1.0 mg/dL (0.55-1.3) 11/21/19 08:00 Est GFR (CKD-EPI)AfAm 74.49 11/21/19 08:00 Est GFR (CKD-EPI)NonAf 64.27 11/21/19 08:00 Random Glucose 133 mg/dL (74-106) H 11/21/19 08:00 Calcium 8.7 mg/dL (8.5-10.1) 11/21/19 08:00 Total Bilirubin 0.2 mg/dL (0.2-1) 11/21/19 08:00 AST 34 U/L (15-37) 11/21/19 08:00 ALT 37 U/L (13-61) 11/21/19 08:00 Alkaline Phosphatase 122 U/L (45-117) H 11/21/19 08:00 Total Protein 5.8 g/dl (6.4-8.2) L 11/21/19 08:00 Albumin 2.9 g/dl (3.4-5.0) L 11/21/19 08:00 Urine Color Yellow 11/21/19 10:05 Urine Appearance Clear 11/21/19 10:05 Urine pH 6.0 (5.0-8.0) 11/21/19 10:05 Ur Specific [place] 1.010 (1.010-1.035) 11/21/19 10:05 Urine Protein Negative (NEGATIVE) 11/21/19 10:05 Urine Glucose (UA) Negative (NEGATIVE) 11/21/19 10:05 Urine Ketones Negative (NEGATIVE) 11/21/19 10:05 Urine Blood Negative (NEGATIVE) 11/21/19 10:05 Urine Nitrite Negative (NEGATIVE) 11/21/19 10:05 Urine Bilirubin Negative (NEGATIVE) 11/21/19 10:05 Urine Urobilinogen 0.2 mg/dL (0.2-1.0) 11/21/19 10:05 Ur Leukocyte Esterase Trace (NEGATIVE) 11/21/19 10:05 Urine WBC (Auto) 4.4 /hpf (0-5) 11/21/19 10:05 Urine RBC (Auto) 0.9 /hpf (0-4) 11/21/19 10:05 Urine Casts (Auto) 4.09 /lpf (0-8) 11/21/19 10:05 U Epithel Cells (Auto) 17.4 /HPF (0-5/HPF) 11/21/19 10:05 Urine Bacteria (Auto) 336.4 /hpf (NEGATIVE) 11/21/19 10:05 Phenytoin 5.8 11/23/19 08:00 RPR Titer Nonreactive (NONREACTIVE) 11/21/19 08:00 Pertinent Past History: patient understands the important of follow up with neurologist for seizure disorder that bringing in lab report to primary care provider for dilantin level as well as adherence with dilantine - Physical Exam Results Vital Signs: Vital Signs Temperature 97.5 F L 11/23/19 09:31 Pulse Rate 84 11/23/19 09:31 Respiratory Rate 18 11/23/19 09:31 Blood Pressure 134/93 11/23/19 09:31 O2 Sat by Pulse Oximetry (%) Pertinent Admission Physical Exam Findings: alcohol withdrawal Laboratory Last Values WBC 9.1 K/mm3 (4.0-10.0) 11/21/19 08:00 RBC 4.92 M/mm3 (3.60-5.2) 11/21/19 08:00 Hgb 13.7 GM/dL (10.7-15.3) 11/21/19 08:00 Hct 41.0 % (32.4-45.2) 11/21/19 08:00 MCV 83.2 fl (80-96) 11/21/19 08:00 MCH 27.9 pg (25.7-33.7) 11/21/19 08:00 MCHC 33.5 g/dl (32.0-36.0) 11/21/19 08:00 RDW 14.3 % (11.6-15.6) 11/21/19 08:00 Plt Count 278 K/MM3 (134-434) 11/21/19 08:00 MPV 9.3 fl (7.5-11.1) 11/21/19 08:00 Sodium 142 mmol/L (136-145) 11/21/19 08:00 Potassium 4.2 mmol/L (3.5-5.1) 11/21/19 08:00 Chloride 109 mmol/L (98-107) H 11/21/19 08:00 Carbon Dioxide 26 mmol/L (21-32) 11/21/19 08:00 Anion Gap 7 MMOL/L (8-16) L 11/21/19 08:00 BUN 10.7 mg/dL (7-18) 11/21/19 08:00 Creatinine 1.0 mg/dL (0.55-1.3) 11/21/19 08:00 Est GFR (CKD-EPI)AfAm 74.49 11/21/19 08:00 Est GFR (CKD-EPI)NonAf 64.27 11/21/19 08:00 Random Glucose 133 mg/dL (74-106) H 11/21/19 08:00 Calcium 8.7 mg/dL (8.5-10.1) 11/21/19 08:00 Total Bilirubin 0.2 mg/dL (0.2-1) 11/21/19 08:00 AST 34 U/L (15-37) 11/21/19 08:00 ALT 37 U/L (13-61) 11/21/19 08:00 Alkaline Phosphatase 122 U/L (45-117) H 11/21/19 08:00 Total Protein 5.8 g/dl (6.4-8.2) L 11/21/19 08:00 Albumin 2.9 g/dl (3.4-5.0) L 11/21/19 08:00 Urine Color Yellow 11/21/19 10:05 Urine Appearance Clear 11/21/19 10:05 Urine pH 6.0 (5.0-8.0) 11/21/19 10:05 Ur Specific [place] 1.010 (1.010-1.035) 11/21/19 10:05 Urine Protein Negative (NEGATIVE) 11/21/19 10:05 Urine Glucose (UA) Negative (NEGATIVE) 11/21/19 10:05 Urine Ketones Negative (NEGATIVE) 11/21/19 10:05 Urine Blood Negative (NEGATIVE) 11/21/19 10:05 Urine Nitrite Negative (NEGATIVE) 11/21/19 10:05 Urine Bilirubin Negative (NEGATIVE) 11/21/19 10:05 Urine Urobilinogen 0.2 mg/dL (0.2-1.0) 11/21/19 10:05 Ur Leukocyte Esterase Trace (NEGATIVE) 11/21/19 10:05 Urine WBC (Auto) 4.4 /hpf (0-5) 11/21/19 10:05 Urine RBC (Auto) 0.9 /hpf (0-4) 11/21/19 10:05 Urine Casts (Auto) 4.09 /lpf (0-8) 11/21/19 10:05 U Epithel Cells (Auto) 17.4 /HPF (0-5/HPF) 11/21/19 10:05 Urine Bacteria (Auto) 336.4 /hpf (NEGATIVE) 11/21/19 10:05 Phenytoin 5.8 11/23/19 08:00 RPR Titer Nonreactive (NONREACTIVE) 11/21/19 08:00 lab noted - Treatment Hospital Course: Detox Protocol Followed, Detoxed Safely, Responded well, Discharged Condition Good, Rehab Referral Accepted Patient has Accepted a Rehab Referral to: community support approach - Medication Discharge Medications: Ambulatory Orders Albuterol Sulfate Inhaler - [Ventolin HFA Inhaler -] 2 inh PO Q4H PRN 04/02/18 Aspirin [ASA -] 81 mg PO DAILY 04/02/18 Phenytoin Na Extended [Dilantin -] 100 mg PO TID 04/02/18 Quetiapine Fumarate [Seroquel -] 200 mg PO HS 04/02/18 Trazodone HCl 150 mg PO HS 04/02/18 Azithromycin [Zithromax 250mg Tablets -] 250 mg PO DAILY #4 tablet 11/20/19 - Diagnosis (1) Alcohol dependence Status: Acute Qualifiers: Substance use status: uncomplicated Qualified Code(s): F10.20 - Alcohol dependence, uncomplicated (2) Hypertension Status: Chronic Qualifiers: Hypertension type: essential hypertension Qualified Code(s): I10 - Essential (primary) hypertension (3) Nicotine dependence Status: Acute Qualifiers: Nicotine product type: cigarettes Substance use status: in withdrawal Qualified Code(s): F17.213 - Nicotine dependence, cigarettes, with withdrawal (4) Substance induced mood disorder Status: Suspected - AMA Did Patient Leave Against Medical Advice: No CIWA Score - CIWA Score Nausea/Vomitin-No Nausea/No Vomiting Muscle Tremors: 2 Anxiety: 1-Mildly Anxious Agitation: 0-Normal Activity Paroxysmal Sweats: 1-Minimal Palms Moist Orientation: 0-Oriented Tacttile Disturbances: 0-None Auditory Disturbances: 0-None Visual Disturbances: 0-None Headache: 1-Very Mild CIWA-Ar Total Score: 5
[2019-11-24] MEDS ORDERED: chlordiazePOXIDE HCL 10 MG CAPSULE PO SCH (05:00)
--- NOTE | 2019-11-24 15:11 | EKG ---
Test Reason : Blood Pressure : / mmHG Vent. Rate : 060 BPM Atrial Rate : 060 BPM P-R Int : 140 ms QRS Dur : 090 ms QT Int : 482 ms P-R-T Axes : 000 069 080 degrees QTc Int : 482 ms NORMAL SINUS RHYTHM PROLONGED QT ABNORMAL ECG WHEN COMPARED WITH ECG OF 02-APR-2018 22:31, CRITERIA FOR SEPTAL INFARCT ARE NO LONGER PRESENT Confirmed by MD Vesna, Marshal ([id number]) on 11/24/2019 3:11:17 PM Referred By: Confirmed By:Marshal Malagon MD
[2019-11-25] MEDS ORDERED: chlordiazePOXIDE HCL 10 MG CAPSULE PO ONE (05:00)
== END 2019-11-23 09:58 | disposition home or self-care (01) | DRG 774 ==
LOC: YASAS 12:35 → Y3N 22:27
PROVIDERS: ADMIT Allergy & Immunology; ATTEND Allergy & Immunology
PROC: HZ2ZZZZ Detoxification Services for Substance Abuse Treatment (ICD-10-PCS; principal; 2019-11-20)
DX: F10.230 Alcohol dependence with withdrawal, uncomplicated (principal); F14.20 Cocaine dependence, uncomplicated; F12.10 Cannabis abuse, uncomplicated; F17.213 Nicotine dependence, cigarettes, with withdrawal; F19.24 Other psychoactive substance dependence with psychoactive substance-induced mood disorder; F43.10 Post-traumatic stress disorder, unspecified; I10 Essential (primary) hypertension; G40.909 Epilepsy, unspecified, not intractable, without status epilepticus; R01.1 Cardiac murmur, unspecified; J20.9 Acute bronchitis, unspecified; Z62.810 Personal history of physical and sexual abuse in childhood
CPT/HCPCS: 36415; 80053; 80185; 81003; 85027; 86593; 93005; 93010

== ENCOUNTER 2019-11-20 16:43 | Emergency (ER) | payer OTHER ==
--- NOTE | 2019-11-20 17:43 | PDOC ---
Rapid Medical Evaluation Time Seen by Provider: 11/20/19 17:41 Medical Evaluation: Allergies Allergy/AdvReac Type Severity Reaction Status Date / Time No Known Allergies Allergy Verified 11/20/19 13:01 11/20/19 17:42 Pt c/o: cough x 1 week , + smoker, no fever Pt on brief exam: vss, lcta Pt ordered for: cxr pt to proceed to the ED Discharge Disposition - Diagnosis Bronchitis - Discharge Dispostion Disposition: HOME Condition at time of disposition: Stable - Prescriptions Prescriptions: Azithromycin [Zithromax 250mg Tablets -] 250 mg PO DAILY #4 tablet - Referrals - Patient Instructions Printed Discharge Instructions: DI for Acute Bronchitis Additional Instructions: Azithromycin 250 mg to be taken daily for the next 4 days. Continue all previous treatments at detox facility. Return to ER for any new or worsening symptoms. Thank you very much for choosing us to provide your emergent healthcare needs. - Post Discharge Activity
[2019-11-20 17:45] VITALS: BP 129/81; PULSE 87; TEMP 98.2; BMI 26.2
[2019-11-20] MEDS ORDERED: AZITHROMYCIN 500 MG TABLET PO ONE (18:58)
--- NOTE | 2019-11-20 18:58 | PDOC ---
History of Present Illness - General Chief Complaint: Cold Symptoms Stated Complaint: cough Time Seen by Provider: 11/20/19 17:41 History Source: Patient Exam Limitations: No Limitations - History of Present Illness Initial Comments: 11/20/19 18:51 HISTORY OF PRESENT ILLNESS: 54-year-old woman past medical history of EtOH and crack cocaine use presents emergency department for evaluation of cough. Patient was seen at [address] [place] [address] and is currently being evaluated for detox. She was noted to be coughing there and had some abnormal breath sounds. Patient was sent here for evaluation of the cough. No recent travel or sick contacts. PAST MEDICAL HISTORY: Polysubstance abuse SURGICAL HISTORY: Denies ALLERGIES: No known drug allergies REVIEW OF SYSTEMS General/Constitutional: Denies fever or chills. Denies weakness, weight change. HEENT: Denies change in vision. Denies ear pain or discharge. Denies sore throat. Cardiovascular: Denies chest pain or shortness of breath. Respiratory: See HPI Gastrointestinal: Denies nausea, vomiting, diarrhea or constipation. Denies rectal bleeding. Genitourinary: Denies dysuria, frequency, or change in urination. Musculoskeletal: Denies joint or muscle swelling or pain. Denies neck or back pain. Skin and breasts: Denies rash or easy bruising. Neurologic: Denies headache, vertigo, loss of consciousness, or loss of sensation. Psychiatric: Denies depression or anxiety. Endocrine: Denies increased thirst. Denies abnormal weight change. Hematologic/Lymphatic: Denies anemia, easy bleeding, or history of blood clots. Allergic/Immunologic: Denies hives or skin allergy. Denies latex allergy. PHYSICAL EXAM General Appearance: Well-appearing, appropriately dressed. No apparent distress , no intoxication. HEENT: EOMI, PERRLA, normal ENT inspection, normal voice, TMs normal, pharynx normal. No conjunctival pallor. No photophobia, scleral icterus. Neck: Supple. Trachea midline. No tenderness, rigidity, carotid bruit, stridor , lymphadenopathy, or thyromegaly. Respiratory/Chest: Lungs CTAB. No shortness of breath, chest tenderness, respiratory distress, accessory muscle use. No crackles, rales, rhonchi, stridor , wheezing, dullness. Cardiovascular: RRR. S1, S2. No JVD, murmur, bradycardia, tachycardia. Vascular Pulses: Dorsalis-Pedis (R): 2+, Dorsalis-Pedis (L): 2+ Integumentary: Appropriate color, dry, warm. No cyanosis, erythema, jaundice or rash Past History - Past Medical History Allergies/Adverse Reactions: Allergies Allergy/AdvReac Type Severity Reaction Status Date / Time No Known Allergies Allergy Verified 11/20/19 13:01 Home Medications: Ambulatory Orders Albuterol Sulfate Inhaler - [Ventolin Hfa Inhaler -] 2 inh PO Q4H PRN 04/02/18 Aspirin [ASA -] 81 mg PO DAILY 04/02/18 Phenytoin Na Extended [Dilantin -] 100 mg PO TID 04/02/18 Quetiapine Fumarate [Seroquel -] 200 mg PO HS 04/02/18 Trazodone HCl 150 mg PO HS 04/02/18 Azithromycin [Zithromax 250mg Tablets -] 250 mg PO DAILY #4 tablet 11/20/19 Anemia: No Asthma: No Cancer: No Cardiac Disorders: Yes (HEART MURMUR) CVA: No COPD: No CHF: No Dementia: No Diabetes: No GI Disorders: No Disorders: No HTN: No Hypercholesterolemia: No Kidney Stones: No Liver Disease: No Seizures: Yes (ON DILATIN) Thyroid Disease: No - Reproductive History PID: No - Psycho Social/Smoking Cessation Hx Smoking History: Current every day smoker Have you smoked in the past 12 months: Yes Number of Cigarettes Smoked Daily: 20 Information on smoking cessation initiated: No 'Breaking Loose' booklet given: 04/02/18 Hx Alcohol Use: No Drug/Substance Use Hx: No Substance Use Type: Alcohol, Cocaine, Marijuana Hx Substance Use Treatment: Yes (Completed [facility] in 2009) Respiratory Specific PMHX - Complaint Specific PMHX Hx TB (Tuberculosis): No *Physical Exam - Vital Signs Last Vital Signs Temp Pulse Resp BP Pulse Ox 98.2 F 87 18 129/81 99 11/20/19 17:42 11/20/19 17:42 11/20/19 17:42 11/20/19 17:42 11/20/19 17:42 Medical Decision Making - Medical Decision Making 11/20/19 18:52 A/P: 54-year-old woman for evaluation of cough Chest x-ray as read by me: Questionable developing infiltrate present in the right lower lobe. Most likely a bronchitis but as patient is a smoker I will treat with azithromycin. Lungs clear to auscultation bilaterally Patient has not coughed here. Discharge to [facility] with prescription for azithromycin. I discussed the physical exam findings, ancillary test results and final diagnoses with the patient. I answered all of the patient's questions. The patient was satisfied with the care received and felt comfortable with the discharge plan and treatment plan. The patient will call their primary care physician within 24 hours to arrange follow-up and will return to the Emergency Department with any new, persistent or worsening symptoms. Discharge - Discharge Information Problems reviewed: Yes Clinical Impression/Diagnosis: Bronchitis Condition: Stable - Admission No - Additional Discharge Information Prescriptions: Azithromycin [Zithromax 250mg Tablets -] 250 mg PO DAILY #4 tablet - Follow up/Referral - Patient Discharge Instructions Patient Printed Discharge Instructions: DI for Acute Bronchitis Additional Instructions: Azithromycin 250 mg to be taken daily for the next 4 days. Continue all previous treatments at detox facility. Return to ER for any new or worsening symptoms. Thank you very much for choosing us to provide your emergent healthcare needs. - Post Discharge Activity
[2019-11-20] MEDS ORDERED: AZITHROMYCIN 250 MG TABLET ONE (18:59)
== END 2019-11-20 22:03 | disposition home or self-care (01) ==
LOC: JERFT 16:43 → JER 16:43 → JERFT 22:03
DX: J40 Bronchitis, not specified as acute or chronic (principal); G40.909 Epilepsy, unspecified, not intractable, without status epilepticus; F10.10 Alcohol abuse, uncomplicated; F14.10 Cocaine abuse, uncomplicated; F17.210 Nicotine dependence, cigarettes, uncomplicated
CPT/HCPCS: 71046-TC-FY; 99281-25